=== PATIENT | female | born 1995 | race Caucasian/White ===

== ENCOUNTER 2017-08-22 16:54 | Emergency (ER) | payer OTHER ==
[~2017-08-22] VITALS: Ht 152.4 cm; Wt 77.7 kg
[2017-08-22 16:55] VITALS: BP 131/80; PULSE 90; RESP 18; TEMP 98.9; O2SAT 99
--- NOTE | 2017-08-22 19:44 | PD ---
HPI Chief Complaint: ENT Complaint Time Seen by Provider: 19:26 Travel History International Travel<30 days: No Contact w/Intl Traveler<30days: No Traveled to known affect area: No History of Present Illness HPI 22-year-old female presents to the emergency room for evaluation of bilateral ear fullness and pain for the past 4 days. States she was sick 3 weeks ago with upper respiratory infection and otitis media. She was given cefdinir. She had mild improvement in symptoms and then symptoms returned after driving down from [place] 1.5 weeks ago. 4 days ago she developed ear discomfort. Patient was prescribed Benadryl but has not been taking it. Denies drainage, fevers, chills, nausea, vomiting. She has mild nasal congestion and cough. No chronic medical conditions other than depression. PFSH Past Medical History ?: Not LMP: 2014 Social History Tobacco Use: No Review of Systems Except as stated in HPI: all other systems reviewed are Neg Physical Exam Narrative GENERAL: Well-nourished, well-developed female in no acute distress. Afebrile. Ambulatory. SKIN: Focused skin assessment warm/dry. HEAD: Normocephalic. EYES: No scleral icterus. No injection or drainage. NECK: Supple, trachea midline. No JVD or lymphadenopathy. EARS: Bilateral pinnae and external canals appear within normal limits. Bilateral tympanic membranes without erythema or perforation. Moderate dullness bilaterally. CARDIOVASCULAR: Regular rate and rhythm without murmurs, gallops, or rubs. RESPIRATORY: Breath sounds equal bilaterally. No accessory muscle use. No crackles, rales, wheezes, or rhonchi. Data Data Last Documented VS Vital Signs Date Time Temp Pulse Resp B/P (MAP) Pulse Ox O2 Delivery O2 Flow Rate FiO2 08/22/17 19:47 08/22/17 16:55 98.9 90 18 99 Room Air Orders Orders Ed Discharge Order (08/22/17 19:45) MDM Medical Decision Making Medical Screen Exam Complete: Yes Emergency Medical Condition: Yes Medical Record Reviewed: Yes Differential Diagnosis Eustachian tube dysfunction, otitis media, otitis externa Narrative Course 22-year-old female presents to the emergency room for evaluation of bilateral ear pain and fullness for the past 4 days. States 3 weeks ago she was diagnosed with an ear infection and prescribed cefdinir. Symptoms improved and then returned after driving down from [place]. Reports mild discomfort and fullness in the ears. She has had no fevers or drainage. Physical exam reveals bilateral effusions of the tympanic membrane without any erythema. No pain on insertion of the otoscope. This is clearly eustachian tube dysfunction likely from changes in elevation and associated upper respiratory infection. She may have viral otitis media but I do not see an indication for a second round of antibiotics within 3 weeks. Patient became cantankerous because she has assumed that all ear pain must be a bacterial infection and needs antibiotics. She was informed eustachian tube dysfunction is not a bacterial infection and prescribing antibiotics will not treat the problem. Patient was offered Flonase but refused. Told to follow up with a primary care physician or return for worsening symptoms. She understands and agrees to plan. Diagnosis Primary Impression: Eustachian tube dysfunction Qualified Codes: H69.83 - Other specified disorders of eustachian tube, bilateral Referrals: Primary Care Physician Additional Instructions: [id number] antihistamines to help clear station to dysfunction. Intranasal medications and nasal washes. Follow-up with a primary care physician. Return to the emergency room for worsening symptoms. Med/Other Pt SpecificInfo: Prescription(s) given Disposition: DISCHARGE HOME Condition: Stable Alana Rubio Aug 22, 2017 19:44
== END 2017-08-22 19:54 | disposition home or self-care (01) ==
LOC: NEPK 16:54
DX: H69.83 Other specified disorders of Eustachian tube, bilateral (principal)
CPT/HCPCS: 99282